=== PATIENT | male | born 1965 | race African-American/Black ===

== ENCOUNTER 2022-07-27 20:00 | Inpatient (IN) ==
[2022-07-27] MEDS ORDERED: BICILLIN LA 1,200,000 UNIT/2 ML SYRINGE IM STA (20:13)
[2022-07-27] MEDS ORDERED: ALBUTEROL 2.5 MG/3 ML NEB RESP TX STA (20:13)
[2022-07-27] MEDS ORDERED: methylPREDNISolone SOD SUC 125 MG/2 ML VIAL IV STA (20:14)
[2022-07-27] MEDS ORDERED: OSELTAMIVIR 75 MG CAPSULE PO ONE (20:23)
[2022-07-27 20:39] LABS: Basophils % 0.4 % (0.0-0.8); Hematocrit 45.5 VOL% (42.0-52.0); Hemoglobin 15.8 GM/DL (14.0-18.0); Immature Granulocytes % 0.4 %; Immature Granulocytes Absolute 0.03 #; Lymphocytes # 0.4 10*3/uL (1.4-4.0); Lymphocytes % 5.1 % (21.2-54.2); Mean Corpuscular HGB Conc 34.7 GM/DL (32-36); Mean Corpuscular Volume 86.7 FL (87-102); Mean Platelet Volume 10.9 FL (9.6-12.0); Monocytes # 0.5 10*3/uL (0.11-0.8); Monocytes % 6.5 % (1.7-12.7); Neutrophils % 87.6 % (38.7-73.9); Platelet Count 209 T/CUMM (130-400); Red Blood Count 5.25 MC/CUMM (3.8-5.5); Red Cell Distribution Width 13.8 % (9.3-17.3); White Blood Count 7.8 T/CUMM (4-12)
[2022-07-27 20:50] LABS: INR 1.1; PT Patient Result 12.2 SECS (10.1-12.1); Partial Thromboplastin Time 37.1 SECS (23.7-32.9)
[2022-07-27 20:55] LABS: Albumin 3.9 G/DL (3.4-5.0); Bilirubin,Total 0.8 MG/DL (0.20-1.00); Calcium 9.2 MG/DL (8.5-10.1); Osmolality,Calculated 273.1 MOS/KG (273-304); Potassium 3.3 MMOL/L (3.5-5.1); Total Protein 7.2 G/DL (6.4-8.2)
[2022-07-27 20:57] LABS: Arterial Base Excess iSTAT 2 MMOL/L (-2.5-2.5); Arterial Bicarbonate iSTAT 27.1 MMOL/L (20-26); Arterial O2 Saturation iSTAT 91 % (95-100); Arterial PCO2 iSTAT 42 MM HG (35-48); Arterial PO2 iSTAT 59 MM HG (80-95); Arterial Total CO2 iSTAT 28 MMO/L (23-27)
[2022-07-27] MEDS ORDERED: NICOTINE 21 MG/24 HR PATCH TRANSDERM PRN (22:30)
[2022-07-27] MEDS ORDERED: hydrALAZINE 20 MG/1 ML VIAL IV PRN (22:30)
[2022-07-27] MEDS ORDERED: ONDANSETRON 4 MG/2 ML VIAL IV PRN (22:30)
[2022-07-27] MEDS ORDERED: diphenhydrAMINE CAP 25 MG CAPSULE PO PRN (22:30)
[2022-07-27] MEDS ORDERED: ZALEPLON 5 MG CAPSULE PO PRN (22:30)
[2022-07-27] MEDS ORDERED: guaiFENesin/DM ER 600-30 MG TABLET PO PRN (22:30)
[2022-07-27] MEDS ORDERED: cefTRIAXone 1,000 MG in SODIUM CHLORIDE 0.9% 100 ML IV SCH (23:00)
[2022-07-28] MEDS: SODIUM CHLORIDE 0.9% 1,000 ML IV SCH ×2 (00:03→13:24)
[2022-07-28] MEDS: AZITHROMYCIN INJ 500 MG in SODIUM CHLORIDE 0.9% 250 ML IV SCH ×2 (00:35→23:38)
[2022-07-28] MEDS: ALBUTEROL/IPRATROPIUM 3 ML NEB RESP TX SCH ×4 (01:02→19:30)
[2022-07-28 02:22] LABS: Basophils % 0.2 % (0.0-0.8); Hematocrit 44.4 VOL% (42.0-52.0); Hemoglobin 15.1 GM/DL (14.0-18.0); Immature Granulocytes % 0.3 %; Immature Granulocytes Absolute 0.02 #; Lymphocytes # 0.6 10*3/uL (1.4-4.0); Lymphocytes % 9.7 % (21.2-54.2); Mean Corpuscular Volume 88.4 FL (87-102); Mean Platelet Volume 11.2 FL (9.6-12.0); Monocytes # 0.1 10*3/uL (0.11-0.8); Monocytes % 2.1 % (1.7-12.7); Neutrophils % 87.7 % (38.7-73.9); Platelet Count 193 T/CUMM (130-400); Red Blood Count 5.02 MC/CUMM (3.8-5.5); Red Cell Distribution Width 13.8 % (9.3-17.3); White Blood Count 6.5 T/CUMM (4-12)
[2022-07-28 02:41] LABS: Calcium 8.6 MG/DL (8.5-10.1); Osmolality,Calculated 282.1 MOS/KG (273-304); Potassium 3.1 MMOL/L (3.5-5.1)
[2022-07-28] MEDS: ACETAMINOPHEN 325 MG TABLET PO PRN (07:26)
[2022-07-28] MEDS ORDERED: POTASSIUM CHLORIDE 10 MEQ TABLET PO SCH (09:00)
[2022-07-28] MEDS: amLODIPine 10 MG TABLET PO SCH (11:13)
[2022-07-28] MEDS: PANTOPRAZOLE 40 MG TABLET PO SCH (11:13)
[2022-07-28] MEDS: FUROSEMIDE 20 MG TABLET PO SCH (11:13)
[2022-07-28] MEDS: HEPARIN 5,000 UNIT/1 ML VIAL SUBCUT SCH ×2 (11:13→21:33)
[2022-07-28] MEDS: LOSARTAN 50 MG TABLET PO SCH (11:13)
[2022-07-28] MEDS: POTASSIUM CHLORIDE 20 MEQ TABLET PO SCH (11:14)
[2022-07-28] MEDS: OSELTAMIVIR 75 MG CAPSULE PO SCH ×2 (11:14→21:33)
[2022-07-28] MEDS: NICOTINE 21 MG/24 HR PATCH TRANSDERM SCH (18:00)
[2022-07-29] MEDS: SODIUM CHLORIDE 0.9% 1,000 ML IV SCH (02:25)
[2022-07-29] MEDS: ALBUTEROL/IPRATROPIUM 3 ML NEB RESP TX SCH ×3 (02:35→12:32)
[2022-07-29 05:27] LABS: Basophils % 0.2 % (0.0-0.8); Hematocrit 44.4 VOL% (42.0-52.0); Hemoglobin 15.3 GM/DL (14.0-18.0); Immature Granulocytes % 0.4 %; Immature Granulocytes Absolute 0.04 #; Lymphocytes # 2.2 10*3/uL (1.4-4.0); Lymphocytes % 20.3 % (21.2-54.2); Mean Corpuscular HGB Conc 34.5 GM/DL (32-36); Mean Corpuscular Volume 87.7 FL (87-102); Mean Platelet Volume 10.8 FL (9.6-12.0); Monocytes # 1.1 10*3/uL (0.11-0.8); Neutrophils % 69.1 % (38.7-73.9); Platelet Count 189 T/CUMM (130-400); Red Blood Count 5.06 MC/CUMM (3.8-5.5); Red Cell Distribution Width 13.9 % (9.3-17.3); White Blood Count 10.6 T/CUMM (4-12)
[2022-07-29 05:44] LABS: Calcium 8.3 MG/DL (8.5-10.1); Osmolality,Calculated 278.5 MOS/KG (273-304)
[2022-07-29] MEDS: NICOTINE 21 MG/24 HR PATCH TRANSDERM SCH (08:46)
[2022-07-29] MEDS: LOSARTAN 50 MG TABLET PO SCH (08:47)
[2022-07-29] MEDS: ACETAMINOPHEN 325 MG TABLET PO PRN (08:47)
[2022-07-29] MEDS: amLODIPine 10 MG TABLET PO SCH (08:47)
[2022-07-29] MEDS: HEPARIN 5,000 UNIT/1 ML VIAL SUBCUT SCH (08:47)
[2022-07-29] MEDS: FUROSEMIDE 20 MG TABLET PO SCH (08:48)
[2022-07-29] MEDS: PANTOPRAZOLE 40 MG TABLET PO SCH (08:48)
[2022-07-29] MEDS: POTASSIUM CHLORIDE 20 MEQ TABLET PO SCH (08:48)
[2022-07-29] MEDS: OSELTAMIVIR 75 MG CAPSULE PO SCH (08:48)
[2022-07-29] MEDS ORDERED: cefTRIAXone 2,000 MG in SODIUM CHLORIDE 0.9% 100 ML IV SCH (09:00)
[2022-07-29 12:52] VITALS: BP 119/58
[2022-07-29] MEDS ORDERED: POTASSIUM CHLORIDE 20 MEQ TABLET PO ONE (14:57)
[2022-07-29] MEDS ORDERED: POTASSIUM CHLORIDE 20 MEQ TABLET PO SCH (21:00)
[2022-07-30] MEDS ORDERED: LEVOFLOXACIN 500 MG TABLET PO SCH (09:00)
== END 2022-07-29 16:51 | disposition home or self-care (01) | DRG 153 ==
LOC: EDBD → EDUNIT# → N.ED 20:00 → N.TELES 22:30 → N.TELEN 23:38
PROVIDERS: ADMIT Hospitalist; ATTEND Hospitalist